=== PATIENT | female | born 1940 | race Caucasian/White ===

== ENCOUNTER 2016-08-23 13:57 | Emergency (ER) | payer OTHER ==
[~2016-08-23] VITALS: Ht 160 cm; Wt 80.1 kg
[2016-08-23 14:01] VITALS: BP 199/87; PULSE 74; RESP 20; TEMP 98.9; O2SAT 88
[2016-08-23] MEDS ORDERED: LISI40TA PO (14:10)
[2016-08-23] MEDS ORDERED: SULF500T3 PO (14:10)
[2016-08-23] MEDS ORDERED: ASPI-110 PO (14:10)
[2016-08-23] MEDS ORDERED: LEFL1TAB3 PO (14:10)
[2016-08-23] MEDS ORDERED: METO100T PO (14:10)
[2016-08-23 14:58] VITALS: O2SAT 93
[2016-08-23] MEDS ORDERED: methylPREDNISolone SOD SUCC 125 MG/2 ML VIAL IVP ONE (15:00)
[2016-08-23] MEDS: RESP: ALBUTEROL 2.5 MG/IPRATROPIUM 0.5 MG NEB (SCH) INH ×2 (15:02→15:03)
--- NOTE | 2016-08-23 15:25 | PD ---
HPI Chief Complaint: Respiratory Distress Time Seen by Provider: 14:45 Travel History International Travel<30 days: No Contact w/Intl Traveler<30days: No Traveled to known affect area: No History of Present Illness HPI 76-year-old female with history of COPD on 2 L of home O2 in the evenings, lung cancer status post chemotherapy and radiation, sent in by her deodorizer operator Dr. Gomez for shortness of breath and hypoxia. Patient reports that she has had worsening shortness of breath for the last 5 days ever since returning from a cruise from the [facility]. She has had a cough productive of yellowish sputum. No hemoptysis. No fevers. The patient made an appointment with her deodorizer operator 3 days ago, and when she went to his office today, he noticed that her sats were in the 50s, and sent her to the emergency department. The patient arrives by private vehicle. She states that 2 days ago she was having substernal chest pressure that was worse with inspiration. She denies history of DVT or PE. No known history of coronary artery disease. Currently she does not have any chest pain and reports that she feels much better than earlier today. PFSH Past Medical History Arthritis: Yes Cardiovascular Problems: Yes (HTN) COPD: Yes Diminished Hearing: No Hypertension: Yes Respiratory: Yes (COPD) Tetanus Vaccination: > 5 Years Influenza Vaccination: Yes ?: Not Past Surgical History Ear Surgery: Yes (RIGHT EAR) Other Surgery: Yes ("TUMOR REMOVED FROM BACK") Social History Alcohol Use: No Tobacco Use: No (QUIT 2001) Substance Use: No Allergies-Medications (Allergen,Severity, Reaction): Coded Allergies: No Known Allergies (Unverified , 08/23/16) Reported Meds & Prescriptions Reported Meds & Active Scripts Active Reported Aspirin 81 (Aspirin) 81 Mg Tabdr 81 Mg PO DAILY Lisinopril 40 Mg Tab 40 Mg PO HS Metoprolol Tartrate 100 Mg Tab 100 Mg PO HS Leflunomide 20 Mg Tab 20 Mg PO DAILY Sulfasalazine 500 Mg Tab 500 Mg PO BID Review of Systems Except as stated in HPI: all other systems reviewed are Neg Physical Exam Narrative GENERAL: Well-developed, well-nourished, pleasant, awake, alert, no apparent distress SKIN: Focused skin assessment warm/dry. HEAD: Atraumatic. Normocephalic. EYES: Pupils equal and round. No scleral icterus. No injection or drainage. ENT: Mucous membranes pink and moist. NECK: Trachea midline. No JVD. CARDIOVASCULAR: Regular rate and rhythm. RESPIRATORY: Speaking full sentences. Pursed lip breathing. Poor air movement bilaterally. No wheezes, rales, or rhonchi. GASTROINTESTINAL: Abdomen soft, non-tender, nondistended. MUSCULOSKELETAL: No obvious deformities. No clubbing. No cyanosis. No edema. NEUROLOGICAL: Awake and alert. No obvious cranial nerve deficits. Motor grossly within normal limits. Normal speech. PSYCHIATRIC: Appropriate mood and affect; insight and judgment normal. Data Data Last Documented VS Vital Signs Date Time Temp Pulse Resp B/P Pulse Ox O2 Delivery O2 Flow Rate FiO2 08/23/16 14:58 93 Nasal Cannula 2 08/23/16 14:04 20 08/23/16 14:01 98.9 74 199/87 Orders Complete Blood Count With Diff (08/23/16 14:52) Comprehensive Metabolic Panel (08/23/16 14:52) B-Type Natriuretic Peptide (08/23/16 14:52) Act Partial Throm Time (Ptt) (08/23/16 14:52) Prothrombin Time / Inr (Pt) (08/23/16 14:52) Ckmb (Isoenzyme) Profile (08/23/16 14:52) Troponin I (08/23/16 14:52) Influenzae A/B Antigen (08/23/16 14:52) Iv Access Insert/Monitor (08/23/16 14:52) Ecg Monitoring (08/23/16 14:52) Oximetry (08/23/16 14:52) Oxygen Administration (08/23/16 14:52) Chest, Single Ap (08/23/16 14:52) Ct Pulmonary Angiogram (08/23/16 14:52) Sodium Chloride 0.9% Flush (Ns Flush) (08/23/16 15:00) Methylprednisolone So Succ Inj (Solumedr (08/23/16 15:00) Albuterol-Ipratropium Neb (Duoneb Neb) (08/23/16 15:00) Electrocardiogram (08/23/16 14:30) MDM Medical Decision Making Medical Screen Exam Complete: Yes Emergency Medical Condition: Yes Medical Record Reviewed: Yes Interpretation(s) EKG: Sinus, rate 75, left for axis, normal intervals, Q waves in anterior/septal /inferior leads, T-wave inversions in III and aVF, no ST segment abnormalities, no prior comparison. Differential Diagnosis COPD exacerbation, PE, pneumonia, pneumothorax, ACS Narrative Course Initial vital signs show heart rate 74, blood pressure 199/87, pulse ox 80% on room air, oral temp of 98.9F. Chest x-ray: Consider cardiomegaly otherwise negative. At approximately 4:00 PM at the end my shift patient was signed out to oncoming provider Dr. Rebollar who will follow up with labs, CT pulmonary angiogram, and will disposition the patient appropriate. Abdoul Dalton MD August 23, 2016 15:25
--- NOTE | 2016-08-23 15:29 | RADHPO ---
EXAM DATE/TIME: 08/23/2016 14:58 [facility] COMPARISON: No previous studies available for comparison. INDICATIONS : Short of breath MEDICAL HISTORY : None. SURGICAL HISTORY : None. ENCOUNTER: Initial ACUITY: 1 day PAIN SCORE: 3/10 LOCATION: Bilateral chest FINDINGS: The lungs are clear. The heart is minimally enlarged. The pulmonary vascularity is normal. There is n o evidence for infiltrate or failure. The portion of the bony skeleton visualized is unremarkable. CONCLUSION: Compensated cardiomegaly otherwise negative Rivas Perera MD FACR Board Certified Radiologist. This report was verified electronically.
[2016-08-23] MEDS: SODIUM CHLORIDE 0.9% FLUSH 10 ML FLUSH IVF PRN ×2 (16:29→18:07)
[2016-08-23 16:30] VITALS: BP 139/56; PULSE 76; RESP 18; O2SAT 94
[2016-08-23 16:30] LABS: WHITE BLOOD COUNT 3.3 TH/MM3 (4.0-11.0)
[2016-08-23 16:31] LABS: AUTOMATED NEUTROPHIL # 1.7 TH/MM3 (1.8-7.7); EOSINOPHIL % 0.6 % (0.0-4.0); HEMATOCRIT 29.6 % (35.0-46.0); HEMO FLAGS DIFF FINAL; LYMPH % 30.5 % (9.0-44.0); MEAN CELL VOLUME 104.9 FL (80.0-100.0); MEAN CORPUSCULAR HEMOGLOBIN 33.1 PG (27.0-34.0); MEAN CORPUSCULAR HGB CONC 31.5 % (32.0-36.0); MONO % 18.3 % (0.0-8.0); NEUT % 49.6 % (16.0-70.0); PLATELET COUNT 167 TH/MM3 (150-450); RED BLOOD COUNT 2.83 MIL/MM3 (4.00-5.30); RED CELL DISTRIBUTION WIDTH 15.9 % (11.6-17.2)
[2016-08-23 16:39] LABS: CHLORIDE 100 MEQ/L (98-107); POTASSIUM 3.8 MEQ/L (3.5-5.1); SODIUM (NA) 143 MEQ/L (136-145)
[2016-08-23 16:43] LABS: ANION GAP 3 MEQ/L (5-15); APTT (PATIENT) 26.7 SEC (24.3-30.1); BICARBONATE 40.4 MEQ/L (21.0-32.0); BLOOD UREA NITROGEN 16 MG/DL (7-18); INTERNATIONAL NORMALIZED RATIO 1.2 RATIO
[2016-08-23 16:46] LABS: ALT (GPT) 15 U/L (10-53); AST (GOT) 25 U/L (15-37); GLOMERULAR FILTRATION RATE 66 ML/MIN (>89)
[2016-08-23 16:47] LABS: TOTAL BILIRUBIN ADULT 0.2 MG/DL (0.2-1.0)
[2016-08-23 16:49] LABS: ALKALINE PHOSPHATASE 105 U/L (45-117)
[2016-08-23 17:00] LABS: CREATINE KINASE 83 U/L (26-192)
[2016-08-23 17:35] VITALS: BP 167/70; PULSE 78; RESP 16; O2SAT 93
[2016-08-23] MEDS ORDERED: IOHEXOL 350 MG/ML 10 ML VIAL (for RAD DIAG) IV ONE (17:44)
[2016-08-23] MEDS ORDERED: FUROSEMIDE 40 MG/4 ML VIAL IV PUSH ONE (17:45)
--- NOTE | 2016-08-23 17:54 | RADHPO ---
EXAM DATE/TIME: 08/23/2016 17:29 [facility] COMPARISON: No previous studies available for comparison. INDICATIONS : Short of breath and hypoxia x 5 days. IV CONTRAST: 75 cc Omnipaque 350 (iohexol) IV RADIATION DOSE: 14.05 CTDIvol (mGy) MEDICAL HISTORY : Carcinoma, lung. Chronic obstructive pulmonary disease. Hypertension. SURGICAL HISTORY : None. ENCOUNTER: Initial ACUITY: 4 - 6 days PAIN SCALE: 0/10 LOCATION: Chest TECHNIQUE: Volumetric scanning of the chest was performed using a pulmonary embolism protocol MIP images were reconstructed. Using automated exposure control and adjustment of the mA and/or kV acco rding to patient size, radiation dose was kept as low as reasonably achievable to obtain optimal diag nostic quality images. FINDINGS: There are minimal bibasilar parenchymal changes present in both lungs with small bilate ral pleural effusions larger on the right than the left. Right pleural effusion occupies approximatel y 10% of the right hemithorax. There is no pericardial effusion. There is no axillary adenopathy. There is good visualization of the central pulmonary vessels. There is no evidence for central pulmo nary emboli. Minimal coronary artery calcifications are noted. Portion of the liver and spleen identified are grossly free of focal defects. CONCLUSION: 1. Cardiomegaly with mild congestive failure and small right pleural effusion. 2. Minimal bibasilar parenchymal changes. 3. There is no evidence for central pulmonary emboli. 4. Minimal coronary artery calcifications. Rivas Perera MD FACR on August 23, 2016 at 17:48 Board Certified Radiologist. This report was verified electronically.
--- NOTE | 2016-08-23 18:10 | PD ---
Physical Exam Date Seen by Provider: August 23, 2016 Time Seen by Provider: 18:07 Narrative This 76-year-old female is complaining of shortness of breath. She had been at Dr. Carranza's office and was noted to have a low saturation and was asked to come here to rule out pulmonary embolus. She was seen initially by Dr. alva. Lab work has been ordered. Of note her BNP is over thousand milligrams troponin is 0.08. A CTA has been ordered and shows cardiomegaly with mild congestive failure and small right pleural effusion. There is minimal bibasilar parenchymal changes to evidence for pulmonary embolus. Patient is having some increasing dyspnea recently. She does see Dr. Lechuga for enlarged heart. Patient says she feels well now. I have recommended to her quite strongly that she should be admitted for adjustment of her medication. She is quite insistent that she cannot stay. She is here with her adult son who has seizures. She says she has to care for him and cannot stay in the hospital I have urged her to return if any problems. She will be started on Lasix 40 daily. Patient does have a hemoglobin of 9.3. I do not have any previous CBCs on her but she says she is aware that she has a history of anemia. She had lung cancer which was treated with radiation and chemotherapy 2 years ago without evidence of recurrence. Data Data Last Documented VS Vital Signs Date Time Temp Pulse Resp B/P Pulse Ox O2 Delivery O2 Flow Rate FiO2 08/23/16 17:35 78 16 167/70 93 Nasal Cannula 2 08/23/16 14:01 98.9 Orders Complete Blood Count With Diff (08/23/16 14:52) Comprehensive Metabolic Panel (08/23/16 14:52) B-Type Natriuretic Peptide (08/23/16 14:52) Act Partial Throm Time (Ptt) (08/23/16 14:52) Prothrombin Time / Inr (Pt) (08/23/16 14:52) Ckmb (Isoenzyme) Profile (08/23/16 14:52) Troponin I (08/23/16 14:52) Influenzae A/B Antigen (08/23/16 14:52) Iv Access Insert/Monitor (08/23/16 14:52) Ecg Monitoring (08/23/16 14:52) Oximetry (08/23/16 14:52) Oxygen Administration (08/23/16 14:52) Chest, Single Ap (08/23/16 14:52) Ct Pulmonary Angiogram (08/23/16 14:52) Sodium Chloride 0.9% Flush (Ns Flush) (08/23/16 15:00) Methylprednisolone So Succ Inj (Solumedr (08/23/16 15:00) Albuterol-Ipratropium Neb (Duoneb Neb) (08/23/16 15:00) Electrocardiogram (08/23/16 14:30) Furosemide Inj (Lasix Inj) (08/23/16 17:45) Iohexol 350 Inj (Omnipaque 350 Inj) (08/23/16 17:44) Labs Laboratory Tests Test 08/23/16 16:15 White Blood Count 3.3 TH/MM3 Red Blood Count 2.83 MIL/MM3 Hemoglobin 9.3 GM/DL Hematocrit 29.6 % Mean Corpuscular Volume 104.9 FL Mean Corpuscular Hemoglobin 33.1 PG Mean Corpuscular Hemoglobin 31.5 % Concent Red Cell Distribution Width 15.9 % Platelet Count 167 TH/MM3 Mean Platelet Volume 6.8 FL Neutrophils (%) (Auto) 49.6 % Lymphocytes (%) (Auto) 30.5 % Monocytes (%) (Auto) 18.3 % Eosinophils (%) (Auto) 0.6 % Basophils (%) (Auto) 1.0 % Neutrophils # (Auto) 1.7 TH/MM3 Lymphocytes # (Auto) 1.0 TH/MM3 Monocytes # (Auto) 0.6 TH/MM3 Eosinophils # (Auto) 0.0 TH/MM3 Basophils # (Auto) 0.0 TH/MM3 CBC Comment DIFF FINAL Differential Comment Prothrombin Time 13.0 SEC Prothromb Time International 1.2 RATIO Ratio Activated Partial 26.7 SEC Thromboplast Time Sodium Level 143 MEQ/L Potassium Level 3.8 MEQ/L Chloride Level 100 MEQ/L Carbon Dioxide Level 40.4 MEQ/L Anion Gap 3 MEQ/L Blood Urea Nitrogen 16 MG/DL Creatinine 0.83 MG/DL Estimat Glomerular Filtration 66 ML/MIN Rate Random Glucose 85 MG/DL Calcium Level 8.6 MG/DL Total Bilirubin 0.2 MG/DL Aspartate Amino Transf 25 U/L (AST/SGOT) Alanine Aminotransferase 15 U/L (ALT/SGPT) Alkaline Phosphatase 105 U/L Total Creatine Kinase 83 U/L Troponin I 0.08 NG/ML B-Type Natriuretic Peptide 1044 PG/ML Total Protein 6.8 GM/DL Albumin 3.2 GM/DL [facility] Medical Record Reviewed: Yes Supervised Visit with TODD: Yes Differential Diagnosis Differential includes CHF, COPD, pneumonia, PE Narrative Course Workup shows that the patient is having some congestive heart failure which she is not aware of having had before but she does see Dr. Lechuga for enlarged heart. I have recommended admission but she adamantly refuses. We started on Lasix 40 mg daily Diagnosis Primary Impression: Congestive heart failure Qualified Code: I50.9 - Congestive heart failure, unspecified congestive heart failure chronicity, unspecified congestive heart failure type Scripts Potassium Chloride ER 10 Meq Cap10 Meq PO DAILY #30 CAP Ref 0 Prov:Troy Rebollar MD 08/23/16 Furosemide (Lasix)40 Mg Tab40 Mg PO DAILY #30 TAB Ref 0 Prov:Troy Rebollar MD 08/23/16 Disposition: 01 DISCHARGE HOME Condition: Stable Troy Rebollar MD August 23, 2016 18:10
[2016-08-23] MEDS ORDERED: POTA10CA PO (18:12)
[2016-08-23] MEDS ORDERED: FURO1TAB60 PO (18:12)
[2016-08-23 18:42] VITALS: BP 152/68
--- NOTE | 2016-08-24 13:29 | EKG ---
Date Performed: 08/23/2016 Time Performed: 14:30:34 PTAGE: 76 years EKG: Sinus rhythm Left axis deviation Possible anteroseptal infarct - age undetermined Inferior/lateral T wave changes are nonspecific Abnormal ECG NO PREVIOUS TRACING DOCTOR: Macy Kellogg Interpretating Date/Time 08/24/2016 13:27:51
== END 2016-08-23 18:44 | disposition home or self-care (01) ==
LOC: PHED 13:57
DX: I50.9 Heart failure, unspecified (principal); R05 Cough; R94.31 Abnormal electrocardiogram [ECG] [EKG]; I10 Essential (primary) hypertension; Z87.09 Personal history of other diseases of the respiratory system; Z87.39 Personal history of other diseases of the musculoskeletal system and connective tissue; Z86.79 Personal history of other diseases of the circulatory system; Z87.891 Personal history of nicotine dependence
CPT/HCPCS: 71010; 71275; 80053; 82550; 83880; 84484; 85025; 85610; 85730; 87804; 93005; 94640; 94664; 96374; 96375; 99285; J1940; J2930; Q9967